=== PATIENT | female | born 1975 | race Two or more races ===

== ENCOUNTER 2021-05-19 00:47 | Emergency (ER) | payer SELFPAY ==
[~2021-05-19] VITALS: Ht 157.5 cm; Wt 60.0 kg
[2021-05-19] MEDS ORDERED: IBUPROFEN 200 MG TABLET. PO ONE (01:45)
--- NOTE | 2021-05-19 01:54 | RAD ---
XR CHEST 1V Clinical History: Reason: COUGH / Spl. Instructions: / History: Technique: AP view of the chest was obtained at 05/19/2021 1:43 AM. Comparison: None. Findings: The cardiomediastinal silhouette is normal. The pulmonary vasculature is normal. The lungs and pleura l margins are clear. Impression: No evidence of an acute cardiopulmonary process. Electronically signed by: Joshua Fatima III, MD (05/19/2021 1:52 AM) [facility]
--- NOTE | 2021-05-19 02:12 | PHYS DOC ---
Past Medical History Past Surgical History: No Surgical History General Adult EDM: Chief Complaint: NECK PAIN HPI: HPI: Patient is a 45 year old female who presents with what seemed to be 2 separate complaints. 1. Neck Pain. Neck pain has been present since yesterday afternoon. Starts in the left side of the neck and radiates towards the shoulder and down towards the hand. States that she has a tingling sensation in her hand. Neck pain and tingling began at the same time. No weakness. No trauma to the neck. Does not recall any particular strain or injury. No history of similar. Denies any immunocompromising conditions. No history of IVDU. No fevers/chills. 2. 2 weeks of diarrhea and cough. She thinks she may have been exposed to covid. She initially tells me that she didn't get tested, but then later says to RN that she did infact test positive. Says she had a subjective fever 2 weeks ago but that has not returned. She continues to have diarrhea and cough. She felt short of breath for a short period of time 2 nights ago, but this self resolved after cough up some phlegm. No chest pain. No leg swelling. No recent surgeries or immobilizations. Review of Systems: Review of Systems: Constitutional: Denies fever or chills. [] Eyes: Denies change in visual acuity. [] HENT: Reports nasal congestion Respiratory: Reports cough. Denies shortness of breath. [] Cardiovascular: Denies chest pain or edema. [] GI: Denies abdominal pain, nausea, vomiting, bloody stools. Reports diarrhea : Denies dysuria. [] Musculoskeletal: Reports neck pain with radicular pain in the left arm. Integument: Denies rash. [] Neurologic: Denies headache, focal weakness or sensory changes. [] Psychiatric: Denies depression or anxiety. [] Heart Score: C/O Chest Pain: No Current Medications: Current Medications Medications (Trade) Dose Ordered Sig/Marine Start Time Stop Time Status Last Admin Dose Admin Ibuprofen (Motrin) 600 mg 1X ONCE 05/19/21 01:45 05/19/21 01:46 UNV Physical Exam: PE: Constitutional: Well developed, well nourished, no acute distress, non-toxic appearance. [] HENT: Normocephalic, atraumatic Neck: Normal range of motion, has some increasing pain with left-sided flexion. Some paraspinal tenderness to palpation on the left neck. No midline tenderness to palpation. Cardiovascular:Heart rate regular rhythm, no murmur [] Lungs & Thorax: Bilateral breath sounds clear to auscultation [] Abdomen: Bowel sounds normal, soft, no tenderness, no masses, no pulsatile masses. [] Skin: Warm, dry, no erythema, no rash. [] Back: No tenderness, no CVA tenderness. [] Extremities: No tenderness over the clavicles, glenohumeral joint, humerus, elbow, forearm, wrist, or hand. Normal painless range of motion of all joints of upper extremity. No evidence of effusion. 2+ radial pulse. Motor exam as below is intact. Neurologic: Alert and oriented X 3, normal motor function, normal sensory function, no focal deficits noted. [] Specifically 5/5 strength in bilateral: -Shoulder abduction -Elbow flexion/extension -Wrist extension -Pipeman strength Psychologic: Affect normal, judgement normal, mood normal. [] Current Patient Data: Vital Signs: Vital Signs Date Time Temp Pulse Resp B/P (MAP) Pulse Ox O2 Delivery O2 Flow Rate FiO2 05/19/21 01:05 98.1 106 18 187/101 (129) 100 Room Air 98.1 EKG: EKG: [] Radiology/Procedures: Radiology/Procedures: [] Impression: [facility] [address] [place] [address] IMAGING REPORT Signed PATIENT: LEOPOLDO ALCAZAR ACCOUNT: [id number] : 1975 LOCATION: ER AGE: 45 SEX: F EXAM STATUS: REG ER ORD. PHYSICIAN: FILIPPO PARRA MD REASON: COUGH PROCEDURE: CHEST AP ONLY XR CHEST 1V Clinical History: Reason: COUGH / Spl. Instructions: / History: Technique: AP view of the chest was obtained at 05/19/2021 1:43 AM. Comparison: None. Findings: The cardiomediastinal silhouette is normal. The pulmonary vasculature is normal. The lungs and pleural margins are clear. Impression: No evidence of an acute cardiopulmonary process. Electronically signed by: Christin Rendon III, MD (05/19/2021 1:52 AM) [facility] DICTATED and SIGNED BY: CHRISTIN RENDON III, MD DATE: 05/19/21 [id number] 0 Course & Med Decision Making: Course & Med Decision Making Pertinent Labs and Imaging studies reviewed. (See chart for details) Patient 45-year-old female who presents complaining of 2 separate issues. 1. Neck pain. -Consistent with cervical radiculopathy -Neuro intact -No immunocompromising conditions or trauma -Do not feel that she requires advanced imaging or further work-up today. -We will trial treatment with NSAID. Discussed return precautions for left upper extremity weakness. 2. Reported recent covid infection with continuing diarrhea, cough, and mild SOB. -SpO2 100%, normal work of breathing, clear to auscultation. -Normal CXR - no pneumonia -Will electrolytes to screen for abnormalities from diarrhea. -PERC negative. normal vitals, no chest pain. Doubt PE. Dragon Disclaimer: Dragon Disclaimer: This electronic medical record was generated, in whole or in part, using a voice recognition dictation system. Departure Departure Impression: Primary Impression: Cervical radicular pain Additional Impressions: Hypomagnesemia Hypocalcemia Disposition: HOME / SELF CARE / HOMELESS Condition: STABLE Referrals: NO PCP (PCP) Additional Instructions: I believe that you have an irritated nerve root in your neck that is causing your neck pain. Please take ibuprofen 600 mg every 6 hours for the next week. Please take with food. You can also take Tylenol 1000 mg every 6 hours. Do not take more than 4000 mg in a day. If you develop weakness in your arm you need to return to the emergency department for reevaluation. For diarrhea you can take loperamide, and yype-avj-zytrfwl antidiarrheal medication. Take 4 mg for your first dose, and you can repeat 2 mg at a time until your stools have stopped. Do not take more than 16 mg in a day. Please take the calcium and magnesium supplements for 1 week as prescribed. Since you do not have a PCP, please call the number for the [facility] at [phone]. Scripts Calcium Carbonate (CALCIUM) 500 Mg Tab.chew 1 TAB PO TID for 7 Days, #21 TAB 0 Refills Prov: FILIPPO PARRA MD 05/19/21 Magnesium Chloride (SLOW-MAG) 71.5 Mg Tablet.dr 1 TAB PO BID for 7 Days, #14 TAB 0 Refills Prov: FILIPPO PARRA MD 05/19/21 FILIPPO PARRA MD May 19, 2021 02:12
[2021-05-19 02:32] LABS: CALCIUM 7.6 mg/dL (8.5-10.1); CREATININE 0.7 mg/dL (0.6-1.0); GFR 89.7; MAGNESIUM 1.7 mg/dL (1.8-2.4)
[2021-05-19] MEDS ORDERED: IBUPROFEN 400 MG TABLET. PO ONE (02:41)
[2021-05-19 02:47] VITALS: BP 168/78
[2021-05-19] MEDS ORDERED: CALC500T54 PO (02:48)
[2021-05-19] MEDS ORDERED: MAGN71.5 PO (02:48)
--- NOTE | 2021-05-20 02:18 | EKG ---
[facility] [address] [place] [address] Test Date: 2021-05-19 Test Time: 00:58:17 Pat Name: LEOPOLDO ALCAZAR Department: Room: Gender: F Distributor Sales Manager: : 1975 Requested By: FILIPPO PARRA Order Number: [id number] Reading MD: Tiago Phillips MD Measurements Intervals [place] Rate: 83 P: [place]: QRS: 30 QRSD: 86 T: 65 QT: 306 QTc: 364 Interpretive Statements PROBABLE SR BASELINE ARTIFACT Electronically Signed On 05-22-2021 8:31:16 EXPRESS MANAGER by Tiago Phillips MD
--- NOTE | 2021-05-24 13:02 | EKG ---
[facility] [address] [place] [address] Test Date: 2021-05-19 Test Time: 00:58:17 Pat Name: LEOPOLDO ALCAZAR Department: Room: Gender: F Director Clinical Operations: : 1975 Requested By: FILIPPO PARRA Order Number: [id number] Reading MD: Brandon Ortez Measurements Intervals [place] Rate: 83 P: [place]: QRS: 30 QRSD: 86 T: 65 QT: 306 QTc: 364 Interpretive Statements SINUS RHYTHM Electronically Signed On 05-24-2021 20:04:35 IMPREGNATING TANK OPERATOR by Brandon Ortez
== END 2021-05-19 03:20 | disposition home or self-care (01) ==
LOC: ER 00:47
DX: M54.12 Radiculopathy, cervical region (principal); E83.42 Hypomagnesemia; E83.51 Hypocalcemia
CPT/HCPCS: 71045; 80048; 83735; 93005; 99285-25